=== PATIENT | female | born 1960 | race Caucasian/White ===

== ENCOUNTER → 2017-03-26 19:04 | Outpatient (CLI) | payer BC ==
[2014-05-05 11:10] VITALS: BMI 49.3
[~2017-03-26 19:04] MED LIST: AZOR 5-20 MG TA1 TAB PO; DEMEROL50 MG PO; GLIMEPIRIDE4 MG PO; GLUCOPHAGE1000 MG PO; LIPITOR10 MG PO; NORCO 7.5/325 T1 TA1 PO; PROZAC20 MG PO; TOPROL XL50 MG PO
== END | disposition home or self-care (01) ==
LOC: D.SLEEP 19:04
DX: G47.33 Obstructive sleep apnea (adult) (pediatric) (principal)

== ENCOUNTER → 2017-11-11 19:40 | Outpatient (CLI) | payer BC ==
[2014-05-05 11:10] VITALS: BMI 49.3
== END | disposition home or self-care (01) ==
LOC: D.MAMMO 11-04 10:45
DX: Z12.31 Encounter for screening mammogram for malignant neoplasm of breast (principal)

== ENCOUNTER → 2018-02-27 06:40 | Outpatient (CLI) | payer BC ==
[2014-05-05 11:10] VITALS: BMI 49.3
[~2018-02-27 06:40] MED LIST changes: +DUEXIS 800-26.1 EACH; +LIPITOR10 MG; +METOPROLOL TART50 MG PO; +PROZAC40 MG PO; +ULTRAM50 MG PO; +XIGDUO XR 5 MG1 EAC1; +ZANAFLEX4 MG PO
== END | disposition home or self-care (01) ==
LOC: D.CT 06:40
DX: R10.9 Unspecified abdominal pain (principal)

== ENCOUNTER 2018-04-16 21:03 | Observation (INO) | payer BC ==
[~2018-04-16] VITALS: Ht 160 cm; Wt 118.6 kg
--- NOTE | ~2018-04-16 | ST ---
PATIENT:DIVYA AN MEDICAL RECORD: [id number] SEX: F LOCATION:[address] ORDER #: ADMISSION DATE: 04/16/18 AGE OF PATIENT: 58 REFERRING PHYSICIAN: INTERPRETING PHYSICIAN: ANNE MARIE PRESSLEY MD DATE OF SERVICE: 04/17/2018 NUCLEAR STRESS TEST INDICATION: Chest pain of unknown etiology. She was exercised on standard Lexiscan protocol with 27.8 mCi injected at peak stress 9.3 mCi injected for rest images previously. FINDINGS: Gated SPECT reveals a preserved ejection fraction greater than 60% with good wall motioning and thickening and brightening throughout all segments. SPECT imaging Cardiolite was used as a myocardial fusion agent. There is reversible ischemia anteroapically. This includes basal, mid, apical, anterior segments as well as the apex itself. The degree of reversibility is moderate. The amount of myocardium involved is moderate. OVERALL IMPRESSION: 1. This is an abnormal nuclear stress test. Reversible ischemia anteroapically. 2. Gated SPECT reveals a preserved ejection fraction greater than 60%. In this patient with ongoing symptomatology, the current scan suggests the presence of hemodynamically significant coronary artery disease. We will proceed with coronary angiography with followup study. TRANSINT:[id number] Voice Confirmation ID: [id number] DOCUMENT ID: [id number] ANNE MARIE PRESSLEY MD at 1950 CC: [id number] DICTATION DATE: 04/18/18 1000 TALENT SOURCER: 04/18/18 1049 DIS IN 04/17/18 [address] [place] [address]
[~2018-04-16 21:03] MED LIST changes: -DUEXIS 800-26.1 EACH; -LIPITOR10 MG; -METOPROLOL TART50 MG PO; -PROZAC40 MG PO; -ULTRAM50 MG PO; -XIGDUO XR 5 MG1 EAC1; -ZANAFLEX4 MG PO
[2018-04-16] MEDS ORDERED: XIGDUO XR 5 MG1 EAC1 (21:10)
[2018-04-16] MEDS ORDERED: PROZAC40 MG PO (21:10)
[2018-04-16] MEDS ORDERED: LIPITOR10 MG (21:10)
[2018-04-16] MEDS ORDERED: ZANAFLEX4 MG PO (21:11)
[2018-04-16] MEDS ORDERED: ULTRAM50 MG PO (21:11)
[2018-04-16] MEDS ORDERED: METOPROLOL TART50 MG PO (21:12)
[2018-04-16] MEDS ORDERED: AZOR 5-20 MG TA1 TAB PO (21:12)
[2018-04-16] MEDS ORDERED: DUEXIS 800-26.1 EACH (21:12)
[2018-04-16 21:30] VITALS: BP 135/63
[2018-04-16 21:50] LABS: BASOPHILS 0.5 % (0-2); EOSINOPHILS 3.6 % (0-7); HEMATOCRIT 39.1 % (36.0-48.0); HEMOGLOBIN 12.5 g/dL (12-16); IMMATURE GRANULOCYTES 0.3 % (0-5); LYMPHOCYTES 33.1 % (15-50); MCH 26.6 pg (26.0-34.0); MCV 83.2 fL (80.0-100.0); MEAN PLATELET VOLUME 10.4 fL (7.4-10.4); NEUTROPHILS 56.5 % (40-80); PLATELET COUNT 326 10x3/uL (130-400); RDW 15.1 % (11.5-14.5); WBC 12.7 10x3/uL (4.8-10.8)
[2018-04-16 22:02] VITALS: BP 107/55
[2018-04-16 22:19] LABS: ALBUMIN 3.5 g/dL (3.4-5.0); ALKALINE PHOSPHATASE 91 U/L (46-116); ALT (SGPT) 22 U/L (10-68); BILIRUBIN - TOTAL 0.18 mg/dL (0.2-1.3); CALC OSMOLALITY 281 mosm/kg (275-300); CALCIUM 8.7 mg/dL (8.5-10.1); CARBON DIOXIDE 27.8 mmol/L (21.0-32.0); CHLORIDE - SERUM 102 mmol/L (98-107); CREATININE - SERUM 0.8 mg/dL (0.6-1.3); POTASSIUM - SERUM 3.5 mmol/L (3.5-5.1); PROTEIN - SERUM 7.5 g/dL (6.4-8.2); SODIUM 138 mmol/L (136-145); UREA NITROGEN 18 mg/dL (7-18); eGFR NON AFRICAN AMERICAN 77 mL/min (90-120)
[2018-04-16 22:30] VITALS: BP 114/58
[2018-04-16 22:32] LABS: GLUCOSE 170 mg/dL (74-106)
[2018-04-16 22:36] LABS: CREATINE KINASE 78 UL (21-215); TROPONIN-I < 0.017 ng/mL (0.000-0.060)
[2018-04-16 23:31] VITALS: BP 144/69
[2018-04-17 04:00] VITALS: BP 127/53
[2018-04-17 04:48] LABS: CREATINE KINASE 68 UL (21-215)
[2018-04-17 04:49] LABS: TROPONIN-I < 0.017 ng/mL (0.000-0.060)
[2018-04-17 07:13] VITALS: Ht 160 cm; Wt 118.6 kg
[2018-04-17 08:13] VITALS: BP 106/54
[2018-04-17 12:46] VITALS: BP 119/51
[2018-04-17 14:06] LABS: CKMB 0.8 U/L (0.0-3.6); CREATINE KINASE 63 UL (21-215); TROPONIN-I < 0.017 ng/mL (0.000-0.060)
== END 2018-04-17 16:37 | disposition home or self-care (01) ==
LOC: D.ER 21:03 → D.EDHOLD 23:10 → D.M2 23:10 → OBSVTIME 23:10 → D.M2 23:45
PROVIDERS: Family Medicine
DX: R07.9 Chest pain, unspecified (principal); I10 Essential (primary) hypertension; E78.5 Hyperlipidemia, unspecified; K21.9 Gastro-esophageal reflux disease without esophagitis; F32.9 Major depressive disorder, single episode, unspecified; Z87.891 Personal history of nicotine dependence

== ENCOUNTER → 2018-04-30 07:00 | Outpatient (CLI) | payer BC ==
[2018-04-17 07:13] VITALS: BMI 49.3
[~2018-04-30 07:00] MED LIST changes: +DUEXIS 800-26.1 EACH; +LIPITOR10 MG; +METOPROLOL TART50 MG PO; +PROZAC40 MG PO; +ULTRAM50 MG PO; +XIGDUO XR 5 MG1 EAC1; +ZANAFLEX4 MG PO
== END | disposition home or self-care (01) ==
LOC: D.US 07:00
DX: R10.9 Unspecified abdominal pain (principal)

== ENCOUNTER 2018-05-14 08:40 | Day surgery (SDC) | payer BC ==
[~2018-05-14] VITALS: Ht 160 cm; Wt 122.3 kg
--- NOTE | ~2018-05-14 | OP ---
PATIENT NAME: DIVYA AN MEDICAL RECORD: [id number] :56 LOCATION:D.OPS ADMISSION DATE: SURGEON: CHELY ALANIS MD DATE OF OPERATION: 05/14/2018 PROCEDURE: EGD with biopsy. REFERRING PHYSICIAN: Daniela Conte DO INDICATIONS: Ms. An is a pleasant 58-year-old woman with a history of heartburn and dysphagia. She has been on Pepcid-AC. She presents for outpatient EGD. PREMEDICATIONS: Total IV anesthesia (propofol 200 mg, BMI of 48.5). INSTRUMENT: Olympus video gastroscope. PROCEDURE AND FINDINGS: After receiving informed consent, Ms. An's posterior pharynx was anesthetized with Cetacaine spray, placed in left lateral decubitus position, sedated as per anesthesia. After achieving adequate level of sedation, gastroscope was introduced per orally and advanced to duodenum without difficulty. The esophageal mucosa was notable for moderate ulcerative changes in the distal third of the esophagus with mild oozing of blood. A small hiatal hernia was noted. Gastric mucosa was notable for patchy erythema in the distal body of the stomach and antrum, and antral biopsies were obtained to rule out Helicobacter pylori. No lesions were seen along the incisura, in the cardia or fundus. Pylorus was patent and competent. Duodenal bulbar mucosa was notable for patchy erythema at the apex and then there was scattered erythema in the second portion of the duodenum and biopsies were taken from the second portion of the duodenum. Gastroscope was then withdrawn. Ms. An tolerated the procedure well, no immediate complications. ASSESSMENT: 1. Moderate ulcerative esophagitis secondary to GE reflux disease. 2. Small hiatal hernia. 3. Mild gastritis. 4. Duodenitis. RECOMMENDATIONS: 1. Follow up histopathology. 2. Avoid nonsteroidal anti-inflammatory drugs. 3. Dexilant 60 mg p.o. daily. 4. Follow up EGD in 2 months to document healing of esophageal ulcers (we will schedule for same day as her colonoscopy in June 2018). TRANSINT:[id number] Voice Confirmation ID: [id number] DOCUMENT ID: [id number] OPERATIVE REPORT [id number] DIVYA AN CHELY ALANIS MD CC: DANIELA CONTE DO [id number] DICTATION DATE: 05/14/18 1439 PARTICLEBOARD FACTORY WORKER: 05/14/18 1449 [facility] [address] [place] [address]
[2018-05-14 08:57] LABS: HEMATOCRIT 41.6 % (36.0-48.0); HEMOGLOBIN 13.2 g/dL (12-16); MCHC 31.7 g/dL (31.0-37.0); MCV 81.9 fL (80.0-100.0); PLATELET COUNT 350 10x3/uL (130-400); RBC 5.08 10x6/uL (4.00-5.40); RDW 15.8 % (11.5-14.5); WBC 12.1 10x3/uL (4.8-10.8)
[2018-05-14 09:13] LABS: CALC OSMOLALITY 279 mosm/kg (275-300); CALCIUM 8.8 mg/dL (8.5-10.1); CARBON DIOXIDE 25.2 mmol/L (21.0-32.0); CHLORIDE - SERUM 103 mmol/L (98-107); CREATININE - SERUM 0.8 mg/dL (0.6-1.3); GLUCOSE 173 mg/dL (74-106); POTASSIUM - SERUM 4.2 mmol/L (3.5-5.1); SODIUM 137 mmol/L (136-145); UREA NITROGEN 18 mg/dL (7-18); eGFR NON AFRICAN AMERICAN 77 mL/min (90-120)
[2018-05-14 09:19] LABS: BASOPHILS 1 % (0-2); EOSINOPHILS 1 % (0-7); LYMPHOCYTES 13 % (15-50); MONOCYTES 1 % (2-11); NEUTROPHILS 79 % (40-80)
[2018-05-14 09:20] LABS: PLATELET ESTIMATE NORMAL; PLATELET MORPHOLOGY PLT CLUMPS PRESENT
[2018-05-14 09:21] LABS: ANISOCYTOSIS 1+; SPHEROCYTES 1+
[2018-05-14 13:48] VITALS: BP 154/87; Ht 160 cm; Wt 122.3 kg
== END 2018-05-14 16:30 | disposition home or self-care (01) ==
LOC: D.OPS 08:40
PROVIDERS: Anesthesiology
DX: K21.0 Gastro-esophageal reflux disease with esophagitis (principal); K29.80 Duodenitis without bleeding; K44.9 Diaphragmatic hernia without obstruction or gangrene; R12 Heartburn

== ENCOUNTER → 2018-05-27 18:14 | Outpatient (CLI) | payer BC ==
[2018-05-14 13:48] VITALS: BMI 47.7
[2018-05-27 18:51] LABS: CHOL - HDL RATIO 2.2 ratio (2.3-4.1); LDL-HDL RATIO 0.8 ratio (1.5-3.5)
== END | disposition home or self-care (01) ==
LOC: D.LABREF 18:14
PROVIDERS: Internal Medicine Cardiovascular Disease
DX: E78.5 Hyperlipidemia, unspecified (principal)

== ENCOUNTER → 2018-07-03 10:15 | Outpatient (CLI) | payer BC ==
[2018-05-14 13:48] VITALS: BMI 47.7
== END | disposition home or self-care (01) ==
LOC: D.US 10:15
DX: D49.2 Neoplasm of unspecified behavior of bone, soft tissue, and skin (principal)

== ENCOUNTER 2018-07-16 17:47 | Day surgery (SDC) | payer BC ==
[~2018-07-16] VITALS: Ht 160 cm; Wt 110.9 kg
--- NOTE | ~2018-07-16 | OP ---
PATIENT NAME: DIVYA SALCEDO MEDICAL RECORD: [id number] :56 [facility] ADMISSION DATE: SURGEON: CHELY ALANIS MD DATE OF OPERATION: 07/16/2018 PROCEDURES: EGD and colonoscopy with biopsy, polypectomy, and thermal ablation. INDICATIONS: Ms. Salcedo is a delightful 58-year-old woman with history of GE reflux disease, dysphagia, hematochezia, and change in bowel habits. Her last colonoscopy was over [address] Salas. She had an EGD on 05/14/2018 that showed moderate ulcerative esophagitis, small hiatal hernia, mild gastritis, and duodenitis. Antral biopsy showed H. pylori positive and she was treated. She has been taking Dexilant 60 mg daily and her dysphagia has resolved. She had a CT scan of abdomen and pelvis with contrast on 02/27/2018 that showed no acute inflammatory or infectious process seen in the abdomen, diverticulosis throughout the sigmoid colon without findings of acute diverticulitis, aortic and pelvic atherosclerosis. She presents for outpatient follow up EGD and colonoscopy. PROCEDURE AND FINDINGS: After receiving informed consent, Ms. Salcedo's posterior pharynx was anesthetized with Cetacaine spray. She was placed in left lateral decubitus position. Bite-block was placed and she was sedated as per anesthesia. After achieving adequate level of sedation, gastroscope was introduced per orally and advanced to the duodenum without difficulty. The esophageal mucosa was without erythema, ulcers, strictures, or masses; and appeared normal down the GE junction. The esophageal ulcers had healed. Small sliding-type hiatal hernia was present. Gastric mucosa was notable for mild diffuse erythema. No ulcers were noted. Pylorus was patent and competent. Duodenal mucosa was without erythema or ulcers, appeared normal through the second portion. Gastroscope was then withdrawn. She was prepared for colonoscopy. Digital rectal exam was performed that showed few external hemorrhoidal tags, fissure or fistulas, normal sphincter tone, and no palpable rectal masses. Colonoscope was introduced per rectally and advanced to the cecum without difficulty. The cecum, IC valve, and appendiceal orifice were identified. Within the cecum, was a 0.3-cm sessile polyp, removed with hot biopsy forcep technique. There was minimal patchy erythema in ascending and sigmoid colon and random biopsies were taken from ascending and sigmoid colon for histology. There was a small 0.3-cm sessile polyp at the splenic flexure, removed with hot biopsy forceps technique. Few diverticula were seen scattered in the sigmoid colon. In the distal rectum, just proximal to the anal verge, was a small rectal polyp measuring 0.25 cm in size that was ablated for polyp destruction with hot biopsy forceps technique. Mild internal hemorrhoids were noted with internal papilla present. A good prep was present. Liquid was collected from the colon for studies (xTAG). Ms. Salcedo tolerated the procedure well. No immediate complications. ASSESSMENT: 1. Healed ulcerative esophagitis. 2. Small hiatal hernia. 3. Mild gastritis. 4. History of H. pylori. 5. Nonspecific erythema involving ascending and sigmoid colon, status post biopsy. OPERATIVE REPORT [id number] DIVYA SALCEDO 6. Mild sigmoid diverticulosis coli. 7. Small cecal and splenic flexure polyps, status post polypectomy. 8. Small distal rectal polyp, status post thermal ablation. 9. Mild internal hemorrhoids with hemorrhoidal tag, source of rectal bleeding. RECOMMENDATIONS: 1. Follow up histopathology. 2. Avoid aspirin, nonsteroidal anti-inflammatory drugs, and GARCÍA-2 inhibitors 14 days postpolypectomy. 3. High-fiber diet. 4. Continue Dexilant 60 mg p.o. daily. Recommend after 3 months to discontinue Dexilant and start H2 emmanuel b.i.d. (i.e., Zantac or Pepcid). 5. Surveillance colonoscopy in 3 years. TRANSINT:[id number] Voice Confirmation ID: [id number] DOCUMENT ID: [id number] CHELY ALANIS MD at 2003 CC: DANIELA CONTE DO [id number] DICTATION DATE: 07/16/18 1511 ORDER DISPATCHER: 07/16/18 1711 [facility] 07/16/18 [address] [place] [address]
[2018-07-16 13:38] VITALS: BP 141/74; Ht 160 cm; Wt 110.9 kg
[2018-07-16 13:44] LABS: BASOPHILS 0.5 % (0-2); EOSINOPHILS 1.5 % (0-7); HEMATOCRIT 43.9 % (36.0-48.0); HEMOGLOBIN 14.1 g/dL (12-16); IMMATURE GRANULOCYTES 0.2 % (0-5); LYMPHOCYTES 27.4 % (15-50); MCH 26.3 pg (26.0-34.0); MCHC 32.1 g/dL (31.0-37.0); MCV 81.8 fL (80.0-100.0); MEAN PLATELET VOLUME 10.5 fL (7.4-10.4); MONOCYTES 7.9 % (2-11); NEUTROPHILS 62.5 % (40-80); PLATELET COUNT 377 10x3/uL (130-400); RBC 5.37 10x6/uL (4.00-5.40); RDW 18.2 % (11.5-14.5); WBC 10.8 10x3/uL (4.8-10.8)
[2018-07-16 14:07] LABS: ALBUMIN 3.9 g/dL (3.4-5.0); ALKALINE PHOSPHATASE 72 U/L (46-116); ALT (SGPT) 21 U/L (10-68); BILIRUBIN - TOTAL 0.41 mg/dL (0.2-1.3); CALC OSMOLALITY 283 mosm/kg (275-300); CALCIUM 9.3 mg/dL (8.5-10.1); CARBON DIOXIDE 29.1 mmol/L (21.0-32.0); CHLORIDE - SERUM 102 mmol/L (98-107); CREATININE - SERUM 0.7 mg/dL (0.6-1.3); POTASSIUM - SERUM 4.1 mmol/L (3.5-5.1); SODIUM 142 mmol/L (136-145); UREA NITROGEN 12 mg/dL (7-18); eGFR NON AFRICAN AMERICAN 90 mL/min (90-120)
[2018-07-16 14:08] LABS: GLUCOSE 124 mg/dL (74-106)
== END 2018-07-16 17:48 | disposition home or self-care (01) ==
LOC: D.OPS 17:47
PROVIDERS: Internal Medicine Gastroenterology
DX: K21.9 Gastro-esophageal reflux disease without esophagitis (principal); K44.9 Diaphragmatic hernia without obstruction or gangrene; K29.70 Gastritis, unspecified, without bleeding; D12.0 Benign neoplasm of cecum; D12.3 Benign neoplasm of transverse colon; K62.1 Rectal polyp; K57.30 Diverticulosis of large intestine without perforation or abscess without bleeding; K64.8 Other hemorrhoids; K64.4 Residual hemorrhoidal skin tags; K52.9 Noninfective gastroenteritis and colitis, unspecified; Z01.812 Encounter for preprocedural laboratory examination

== ENCOUNTER → 2020-02-14 11:04 | Outpatient (CLI) | payer OTHER ==
[2018-07-16 13:38] VITALS: BMI 43.3
== END | disposition home or self-care (01) ==
LOC: D.CT 11:04
PROVIDERS: ATTEND Internal Medicine Cardiovascular Disease
DX: I70.213 Atherosclerosis of native arteries of extremities with intermittent claudication, bilateral legs (principal)

== ENCOUNTER 2021-01-01 07:04 | Day surgery (SDC) | payer OTHER ==
[~2021-01-01] VITALS: Ht 160 cm; Wt 102.7 kg
--- NOTE | ~2021-01-01 | HEMODYNAMI ---
PATIENT:DIVYA AN MEDICAL RECORD: [id number] : 56 LOCATION:[facility] ADMISSION DATE: 01/01/21 Generatedon:110:35 Patient name: DIVYA AN Patient #: [id number] SSN: [id number] : 1960 Date of study: 01/01/2021 Page: Of Hemodynamic Procedure Report Patient Data Patient Demographics Procedure consent was obtained First Name: DIVYA Gender: Female Last Name: JUVE : 1960 [facility] Initial: J Age: 60 year(s) Patient #: [id number] Race: SSN: [id number] Additional ID: [id number] Contact details [address]: [address] [place] [address] State: [place] City: [place] Zip code: [address] Past Medical History Allergies Allergen Reaction Date Comments Reported Other allergy 01/01/2021 CODEINE, CLARITHRYMOCIN Admission Admission Data Admission Date: 01/01/2021 Admission Time: 7:04 Arrival Date: 01/01/2021 Arrival Time: 0:00 Admit Source: Other Insurance Payor: Private health insurance [facility] #: [id number] Height (in.): 63 BSA: 2.04 (m2) Height (cm.): 160.02 BMI: 40.11 (kg/m2) Weight (lbs.): 226.46 Weight (kg.): 102.72 Lab Results Lab Result Date: 01/01/2021 Lab Result Time: 0:00 Biochemistry Name Units Result Min Max BUN mg/dl 11 --(-*--)-- 7 18 Creatinine mg/dl 0.7 --(*---)-- 0.6 1.3 eGFR ml/min 90 --(*---)-- 90 120 NONAFRICAN CBC Name Units Result Min Max Hemoglobin g/dl 13.4 -*(----)-- 13.5 17.5 Procedure Procedure Types Cath Procedure Sedation Charges Moderate Sedation 10-24 minutes Peripheral Cath Diagnostic Procedure Level Designer Peripheral Procedures AFRO Diagnostic Procedure Description Procedure Date Procedure Date: 01/01/2021 Procedure Start Time: 10:16 Procedure End Time: 10:32 Procedure Staff Name Function Rosalio Hernandez MD Performing Physician Kristin Littlejohn RT Monitor Harry Aldridge RN Nurse Paige Batista RT Scrub Indication Pulmonary hypertension Procedure Data Cath Procedure Fluoroscopy Diagnostic fluoroscopy Total fluoroscopy Time: 3.2 time: 3.2 min min Diagnostic fluoroscopy Total fluoroscopy dose: 659 dose: 659 mGy mGy Contrast Material Contrast Material Type Amount (ml) Isovue 300 110 Entry Location Entry Primary Successful Side Size Upsize Upsize Entry Closure Succes sful Closure Location (Fr) 1 (Fr) 2 (Fr) Remarks Device Remarks Femoral Right 5 Fr Exoseal artery Estimated blood loss: 5 ml Diagnostic catheters Device Type Used For End Catheter Placement DIAGNOSTIC Pigtail 5Fr Multi-vessel catheter ([id number]) Angiography Procedure Complications No complications Procedure Medications Medication Administration Route Dosage 0.9% NaCl I.V. 100 ml/hr Oxygen etCO2 Nasal cannula 2 l/min Heparin Flush Bag added to field 2 bags (1000units/500ml NS) Lidocaine 2% added to field 20 Versed I.V. 1 mg Fentanyl I.V. 50 mcg Hemodynamics Rest BSA: 2.04 (m2) HGB: 13.4 (g/dl) O2 Consumption: Estimated: 182.92 (ml/min) O2 Co nsumption indexed: Estimated:89.67 (ml/min/m) Heart Rate: 59 (bpm) Snapshots Pre Cath Intra NCS Post Cath Vital Signs Time Heart Resp SPO2 etCO2 NIBP (mmHg) Rhythm Pain Sedation Rate (ipm) (%) (mmHg) Status Level (bpm) 10:09:30 59 18 98 27.7 130/67(105) NSR 0 (11) 10(A) , No pain 10:13:34 60 11 93 0 117/66(98) NSR 0 (11) 10(A) , No pain 10:17:41 64 17 92 8.9 125/74(107) NSR 0 (11) 9(A) , No pain 10:21:55 65 16 84 40.4 126/68(95) NSR 0 (11) 9(A) , No pain 10:26:05 68 12 88 11.2 121/71(100) NSR 0 (11) 9(A) , No pain 10:30:17 70 11 94 40.4 135/71(103) NSR 0 (11) 9(A) , No pain Medications Time Medication Route Dose Verified Delivered Reason Notes Eff ectiveness by by 10:10:42 0.9% NaCl I.V. 100 Harry Harry Per ml/hr Oly Aldridge physician RN RN 10:10:51 Oxygen etCO2 2 Harry Harry for low 02 Nasal l/min Lorigan Lorigan sats cannula RN RN 10:11:01 Heparin Flush added 2 Harry Harry used for Bag to bags Lorigan Lorigan procedure (1000units/500ml field RN RN NS) 10:11:10 Lidocaine 2% added 20ml Harry Harry for local to vial Lorigan Lorigan anesthetic field RN RN 10:11:18 Versed I.V. 1 mg Harry Harry for Lorigan Lorigan sedation RN RN 10:11:26 Fentanyl I.V. 50 Harry Harry for mcg Lorigan Lorigan sedation RN reporting specialist Log Time Note 9:32:25 Informed consent obtained and on chart 9:32:42 Diagnostic Cath Status : Elective 9:33:13 Indication : Pulmonary hypertension 9:33:16 Arrival Date: 01/01/2021 12:00:00 AM 9:33:17 Admit Source: Other 9:33:19 Insurance Payor : Private health insurance 9:33:33 Patient Height : 63 inches 9:33:37 Patient Weight : 226.46 lbs 9:33:55 ACC Patient presents with Stable Angina CCS Anginal Class 2--Slight limitation of ordinary activity. 9:33:58 Procedure Status Elective Heart Cath (OP). 9:33:59 Time tracking: Regular hours (M-F 7:00 - 5:00) 9:34:03 Plan of Care:Hemodynamics will remain stable., Cardiac rhythm will remain stable., Comfort level will be maintained., Respiratory function will remain adequate., Patient/ family verbilizes understanding of procedure., Procedure tolerated without complication., Recovers from procedure without complications.. 9:34:10 H&P Date Dictated: 12/20/2020 Within 30 days and on chart.. 9:34:12 Family in waiting room. 9:34:14 Patient NPO since Midnight. 9:34:32 Patient allergic to Other allergyCODEINE, CLARITHRYMOCIN 9:34:38 Alarms reviewed by R. N. 9:34:38 Sharps counted by scrub and verified by R.N. 9:44:15 Harry Aldridge RN sent for patient. Start room use. 9:51:46 Lab Result : eGFR NONAFRICAN 90 ml/min 9::46 Lab Result : Creatinine 0.7 mg/dl 9::46 Lab Result : BUN 11 mg/dl 9::46 Lab Result : Hemoglobin 13.4 g/dl 9:52:05 Patient received from Pre/Post Procedure Room to CCL 2 Alert and oriented. Tansferred to table in Supine position. 9:52:18 Warm blankets applied, and tyler hugger turned on for patient comfort. 9:52:19 Correct patient and procedure confirmed by team. 9:52:19 ECG and BP/O2 sat monitors applied to patient. 10:01:37 Procedure type changed to Cath procedure, Sedation Charges, Moderate Sedation 10-24 minutes, Peripheral Cath Diagnostic Procedure, Level Designer Peripheral Procedures, AFRO Diagnostic 10:08:28 Vital chart was started 10:08:29 Baseline sample Acquired. 10:08:32 Rhythm: sinus rhythm 10:08:34 Pre-procedure instructions explained to patient. 10:08:35 Pre-op teaching completed and patient verbalized understanding. 10:08:38 Is the patient allergic to Iodine/contrast media? No. 10:08:39 Was the patient premedicated? Yes 10:08:39 Is patient on blood thinner?Yes 10:09:24 Patient states last dose of Xarelto on 12/28/2020 10:09:27 Patient diabetic? Yes. 10:09:29 If diabetic: On Metformin? Yes 10:09:32 If on Metformin: Last Dose? 12/28/2020 10:09:42 Previous problem with sedation/anesthesia? Yes difficult to awaken 10:09:45 Snore? Yes 10:09:48 Sleep apnea? Yes 10:09:49 Deviated septum? No 10:09:49 Opens mouth fully? Yes 10:09:50 Sticks out tongue? Yes 10:09:57 Airway obstruction? Yes copd 10:10:14 Dentures? Yes in tight 10:10:17 Pre procedure: right dorsailis pedis pulse 1+ Palpable, but thready & weak; easily obliterated 10:10:25 Pre procedure: left dorsailis pedis pulse 1+ Palpable, but thready & weak; easily obliterated 10:10:29 IV patent on arrival in left forearm with 0.9% NaCl at KVO. 10:10:31 Lab results completed and on chart. 10:10:37 Bilateral groins area was prepped with chlora-prep and draped in sterile fashion 10:10:39 Physician arrived 10:10:39 --------ALL STOP TIME OUT------ 10:10:40 Final Timeout: patient, procedure, and site verified with staff and physician. All members of the team are in agreement. 10:10:42 0.9% NaCl 100 ml/hr I.V. was administered by Harry Aldridge RN; Per physician; Verbal order read back and verified. 10:10:42 Bilateral groins site verified by team. 10:10:46 Fire Safety Assessment: A--An alcohol-based skin anteseptic being used preoperatively., C--Open oxygen or nitrous oxide is being used., D--An ESU, laser, or fiber-optic light is being used. 10:10:49 Physical assessment completed. ASA score P 2 - A patient with mild systemic disease as per Rosalio Hernandez MD. 10:10:51 Oxygen 2 l/min etCO2 Nasal cannula was administered by Harry Aldridge RN; for low 02 sats; Verbal order read back and verified. 10:10:53 Sedation plan: IV Moderate Sedation Medication:Versed, Fentanyl 10:10:56 1) 90+ Normal kidney functon but urine findings or structural abnormalities or genetic trait point to kidney disease. 10:10:58 Maximum allowable contrast dose (3.7 X eGFR X 0.75)250 ml. 10:11:01 Heparin Flush Bag (1000units/500ml NS) 2 bags added to field was administered by Harry Aldridge RN; used for procedure; Verbal order read back and verified. 10:11:04 Use device set CATH PACK 10:11:06 ACIST Syringe (80139) opened to sterile field. 10:11:07 ACIST Hand Control (45405) opened to sterile field. 10:11:07 ACIST Manifold (75766) opened to sterile field. 10:11:08 Medline Cath Pack ([id number]) opened to sterile field. 10:11:08 Bag Decanter (2002S) opened to sterile field. 10:11:08 EMERALD Guide Wire (635-532) opened to sterile field. 10:11:10 Lidocaine 2% 20ml vial added to field was administered by Harry Aldridge RN; for local anesthetic; Verbal order read back and verified. 10:11:18 Versed 1 mg I.V. was administered by Harry Aldridge RN; for sedation; Verbal order read back and verified. 10:11:24 SHEATH 5FR Saint Joseph ([id number]) opened to sterile field. 10:11:26 Fentanyl 50 mcg I.V. was administered by Harry Aldridge RN; for sedation; Verbal order read back and verified. 10:16:18 Procedure started. 10:16:18 Full Disclosure recording started 10:16:23 Local anesthetic to right femoral artery with Lidocaine 2% by Rosalio Hernandez MD.INITIAL ACCESS ONLY 10:18:43 A 5 Fr sheath was inserted into the Right Femoral artery 10:18:49 A DIAGNOSTIC Pigtail 5Fr catheter ([id number]) was advanced over the wire and used for Multi-vessel Angiography. 10:27:55 Catheter removed. 10:28:18 EXOSEAL 5Fr (EX500) opened to sterile field. 10:28:46 Sheath removed intact; hemostasis achieved with Exoseal to the Right Femoral artery. 10:28:49 Procedure ended.(Physican Out) 10:29:08 Fluoroscopy time 03.20 minutes. 10:29:13 Fluoroscopy dose: 659 mGy 10:29:13 Flurop Dose total: 659 10:29:18 Dose Area Product 17602 mGy/cm. 10:29:22 Contrast amount:Isovue 300 110ml. 10:29:27 Maximum allowable dose exceeded? No. 10:29:28 Sharps counted by scrub and verified by R.N. 10:29:32 Post-op/insertion site Right Femoral artery dressed using a 4 x 4 and Tegaderm. 10:29:33 Post Procedure Pulses reassessed and unchanged 10:29:35 Post procedure rhythm: unchanged. 10:29:37 Estimated blood loss: 5 ml 10:29:39 Post procedure instruction explained to patient.Patient verbalizes understanding. 10:29:39 Patient needs reinforcement of post procedure teaching. 10:29:40 Procedure and supply charges have been captured, reviewed, submitted and are correct. 10:32:02 Procedure Complication : No complications 10:32:05 Vital chart was stopped 10:32:09 AFRO Findings: PVD: MD will discuss options w/ pt 10:32:10 Operative report dictated upon procedure completion. 10:32:11 See physician's report for complete and final results. 10:32:13 Report given to Pre/Post Procedure Room. 10:32:15 Patient transfered to Pre/Post Procedure Room with Stretcher. 10:32:20 Procedure ended. 10:32:20 Full Disclosure recording stopped 10:32:25 End room use (Document Last) 10:34:19 End room use (Document Last) 10:34:55 End room use (Document Last) Device Usage Item Name Manufacture Quantity Catalog Hospital Part Current Minimal L ot# / Number Charge Number Stock Stock Serial# Code ACIST Acist 1 18756 [id number] 991937 [id number] 20 Syringe Medical (92328) Systems Inc ACIST Hand Acist 1 61201 123629 794210 581875 5 Control Medical (04239) Systems Inc ACIST Acist 1 64088 941509 605433 278461 5 Manifold Medical (52547) Systems Inc Medline Medline 1 [id number] 609274 99133 115658 5 Cath Pack ([id number]) Bag Microtek 1 782990 50148 871033 5 Decanter Medical Inc. () EMERALD Cardinal 1 502-455 685705 027133 167765 5 Guide Wire Health (502-455) SHEATH 5FR Terumo 1 [id number] 929680 650988 960327 5 [facility] Joseph (GAQ635) DIAGNOSTIC Cardinal 1 [id number] 860988 342876 790424 5 Pigtail 5Fr Health catheter ([id number]) EXOSEAL 5Fr Cardinal 1 EX500 820135 217237 077724 10 (EX500) Health Signature Audit [place] Stage Time Signature Unsigned Intra-Procedure 01/01/2021 Kristin Littlejohn 10:34:19 AM RT(R) Intra-Procedure 01/01/2021 Harry 10:34:55 AM Lorigan RN Intra-Procedure 01/01/2021 Rosalio Hernandez MD 10:35:20 AM Signatures Performing Physician : Signature : Rosalio Hernandez MD Date : Time : Monitor : Kristin Littlejohn RT Signature : Date : Time : Nurse : Harry Lorigan Signature : RN Date : Time : [facility] [address] [place] [address]
[2021-01-01] MEDS ORDERED: NORVASC5 MG PO ×2 (08:13→08:16)
[2021-01-01] MEDS ORDERED: GLUCOPHAGE1000 MG PO (08:14)
[2021-01-01] MEDS ORDERED: LIPITOR10 MG PO (08:14)
[2021-01-01] MEDS ORDERED: VITAMIN D21250 MC1 PO (08:14)
[2021-01-01] MEDS ORDERED: TOPROL XL50 MG PO (08:15)
[2021-01-01] MEDS ORDERED: BENICAR20 MG PO (08:16)
[2021-01-01] MEDS ORDERED: PROTONIX40 MG PO (08:17)
[2021-01-01] MEDS ORDERED: XARELTO10 MG PO (08:18)
[2021-01-01] MEDS ORDERED: XIGDUO XR 5 MG1 EAC1 (08:19)
[2021-01-01] MEDS ORDERED: LYRICA75 MG PO (08:20)
[2021-01-01 08:23] VITALS: BP 136/58; Ht 160 cm; Wt 102.7 kg
[2021-01-01 08:41] LABS: CALC OSMOLALITY 277 mosm/kg (275-300); CALCIUM 8.9 mg/dL (8.5-10.1); CARBON DIOXIDE 27.3 mmol/L (21.0-32.0); CHLORIDE - SERUM 105 mmol/L (98-107); CREATININE - SERUM 0.7 mg/dL (0.6-1.3); GLUCOSE 149 mg/dL (74-106); POTASSIUM - SERUM 4.2 mmol/L (3.5-5.1); SODIUM 138 mmol/L (136-145); UREA NITROGEN 11 mg/dL (7-18); eGFR NON AFRICAN AMERICAN 90 mL/min (90-120)
[2021-01-01 08:55] LABS: BASOPHILS 1.2 % (0-2); EOSINOPHILS 3.8 % (0-7); HEMATOCRIT 41.4 % (36.0-48.0); HEMOGLOBIN 13.4 g/dL (12-16); LYMPHOCYTES 28.8 % (15-50); MCH 27.9 pg (26.0-34.0); MCHC 32.3 g/dL (31.0-37.0); MCV 86.4 fL (80.0-100.0); MEAN PLATELET VOLUME 8.4 fL (7.4-10.4); MONOCYTES 8.2 % (2-11); PLATELET COUNT 306 10x3/uL (130-400); RBC 4.79 10x6/uL (4.00-5.40); RDW 14.5 % (11.5-14.5); WBC 8.7 10x3/uL (4.8-10.8)
--- NOTE | 2021-01-01 10:47 | NUR ---
PT REC'D TO CATH RECOVERY ROOM 3 VIA STRETCHER. MONITORS ESTAB. NO FAMILY PRESENT. SEE BUFFET MANAGER FLOWSHEETS. ALARMS ON AND C/L IN REACH.
--- NOTE | 2021-01-01 11:00 | NUR ---
SISTER AT BS. PT RESTING QUIETLY. R GROIN EXOSEAL SITE C/D/I, NO S/S BLEEDING OR HEMATOMA. R LEG/FOOT WARM WITH PULSES DOPPLERED EASILY. VSS. PT DENIES PAIN OR NEEDS. ALARMS ON AND C/L IN REACH.
--- NOTE | 2021-01-01 11:30 | NUR ---
PT RESTING QUIETLY, R GROIN SITE SOFT, NO S/S BLEEDING OR HEMATOMA. VSS. PT PULSE PALP AND DOPPLERED. ALARMS ON AND C/L IN REACH.
--- NOTE | 2021-01-01 11:45 | NUR ---
R GROIN SITE SOFT, NO S/S BLEEDING OR HEMATOMA. R LEG/FOOT WARM, PULSES DOPPLERED. VSS. PT DENIES PAIN OR NEEDS. ALARMS ON AND C/L IN REACH.
--- NOTE | 2021-01-01 12:10 | NUR ---
DR. FAIRBANKS IN TO SEE PT, UPDATE GIVEN AND QUESTIONS ANSWERED. PLAN FOR RETURN TO IT RISK AND ASSURANCE MANAGER FOR PROCEDURE ON R LEG. OFFICE WILL NOTIFY PATIENT.
--- NOTE | 2021-01-01 12:15 | NUR ---
R GROIN SITE SOFT, C/D/I, NO S/S BLEEDING. HOB ELEVATED. SANDWICH TRAY AND WATER PROVIDED. C/L IN REACH.
--- NOTE | 2021-01-01 12:30 | NUR ---
VSS. PT TOLERATED DIET. R GROIN SITE SOFT, NO S/S BLEEDING OR HEMATOMA. PULSES DOPPLERABLE. SISTER AT BS.
--- NOTE | 2021-01-01 12:48 | NUR ---
PIV D/C'D INTACT, DSG APLLIED. PT ALLOWED UP TO GET DRESSED AND GO TO BR INDEPENDENTLY.
--- NOTE | 2021-01-01 12:56 | NUR ---
ALL DISCHARGE INSTRUCTIONS REVIEWED WITH PT AND SISTER, INCLUDING RESTRICTIONS, MEDS AND PLAN FOR RETURN FOR PROCEDURE ( OFFICE WILL NOTIFY PT) - BOTH VERBALIZE UNDERSTANDING. R GROIN SITE SOFT, NO S/S BLEEDING OR HEMATOMA.
--- NOTE | 2021-01-01 13:03 | NUR ---
PT D/C'D VIA WC TO PRIVATE VEHICLE WITH ALL PAPERWORK AND BELONGINGS.
== END 2021-01-01 13:03 | disposition home or self-care (01) ==
LOC: D.CATH 07:04
PROVIDERS: ATTEND Internal Medicine Cardiovascular Disease
DX: I73.9 Peripheral vascular disease, unspecified (principal); I10 Essential (primary) hypertension; E11.9 Type 2 diabetes mellitus without complications

== ENCOUNTER 2021-01-30 06:12 | Inpatient (IN) | payer OTHER ==
[2021-01-30] VITALS (11 sets, daily range): BP systolic 123–150; BP diastolic 49–131; BMI 40.5; BMI 40.4
[~2021-01-30] VITALS: Ht 160 cm; Wt 103.6 kg
--- NOTE | ~2021-01-30 | HEMODYNAMI ---
PATIENT:DIVYA AN MEDICAL RECORD: [id number] : 56 LOCATION:D.CAT ADMISSION DATE: 01/30/21 Generatedon:19:27 Patient name: DIVYA AN Patient #: [id number] SSN: [id number] : 1960 Date of study: 01/30/2021 Page: Of Hemodynamic Procedure Report Patient Data Patient Demographics Procedure consent was obtained First Name: DIVYA Gender: Female Last Name: JUVE : 1960 [facility] Initial: J Age: 61 year(s) Patient #: [id number] Race: SSN: [id number] Additional ID: [id number] Contact details [address]: [address] [place] [address] State: [place] City: [place] Zip code: [address] Past Medical History Allergies Allergen Reaction Date Comments Reported Other allergy 01/01/2021 CODEINE, CLARITHRYMOCIN Codeine 01/30/2021 Admission Admission Data Admission Date: 01/30/2021 Admission Time: 6:12 Admit Source: Other Procedure Procedure Types Cath Procedure Sedation Charges Moderate Sedation 55-69 minutes PCI Procedure Hemochron ACT Test Procedure Description Procedure Date Procedure Date: 01/30/2021 Procedure Start Time: 8:06 Procedure End Time: 9:21 Procedure Staff Name Function Rosalio Hernandez MD Performing Physician Trenton Centeno RT Monitor Rochelle Nolasco RT Scrub Harry Aldridge RN Nurse Procedure Data Cath Procedure Fluoroscopy Diagnostic fluoroscopy Total fluoroscopy Time: time: 14.4 min 14.4 min Diagnostic fluoroscopy Total fluoroscopy dose: 755 dose: 755 mGy mGy Contrast Material Contrast Material Type Amount (ml) Isovue 370 125 Entry Location Entry Primary Successful Side Size Upsize Upsize Entry Closure Succes sful Closure Location (Fr) 1 (Fr) 2 (Fr) Remarks Device Remarks Femoral Left 5 Fr sutured vein in Femoral Right 6 Fr sutured artery Short in Estimated blood loss: 5 ml Diagnostic catheters Device Type Used For End Catheter Placement DIAGNOSTIC IM 5Fr Abdominal catheter ([id number]) aortogram DIAGNOSTIC Pigtail 5Fr catheter ([id number]) Procedure Complications No complications Procedure Medications Medication Administration Route Dosage 0.9% NaCl I.V. 100 ml/hr Oxygen etCO2 Nasal cannula 2 l/min Heparin Flush Bag added to field 2 bags (1000units/500ml NS) Lidocaine 2% added to field 20 Versed I.V. 1 mg Fentanyl I.V. 50 mcg Versed I.V. 0.5 mg Fentanyl I.V. 25 mcg Heparin Bolus I.V. 7000 units Heparin Drip I.V. drip 1000 units/hr (60698ixgch/250 D5W) Hemodynamics Rest Heart Rate: 64 (bpm) Pressure Samples Time Site Value (mmHg) Purpose Heart Use Rate(bpm) 8:40 AO 123/58(85) Snapshot 65 8:40 AO 68/48(56) Snapshot 63 9:09 AO 107/59(81) Snapshot 61 9:10 AO 144/62(95) Snapshot 67 Snapshots Pre Cath Intra NCS Post Cath Vital Signs Time Heart Resp SPO2 etCO2 NIBP (mmHg) Rhythm Pain Sedation Rate (ipm) (%) (mmHg) Status Level (bpm) 7:49:02 65 43 97 35.3 130/61(103) NSR 0 (11) 10(A) , No pain 7:53:27 64 15 99 36 123/61(92) NSR 0 (11) 10(A) , No pain 7:57:40 68 13 91 0 113/60(84) NSR 0 (11) 10(A) , No pain 8:01:58 63 12 92 0 127/65(107) NSR 0 (11) 10(A) , No pain 8:06:19 63 13 93 21.7 110/63(88) NSR 0 (11) 10(A) , No pain 8:10:27 74 19 92 14.2 125/92(118) NSR 0 (11) 9(A) , No pain 8:14:44 69 24 93 0 133/69(103) NSR 0 (11) 9(A) , No pain 8:19:02 67 12 92 0 109/60(88) NSR 0 (11) 9(A) , No pain 8:23:19 68 13 91 0 110/64(90) NSR 0 (11) 9(A) , No pain 8:27:35 65 13 93 8.2 119/58(92) NSR 0 (11) 9(A) , No pain 8:31:53 69 16 95 27 120/66(91) NSR 0 (11) 9(A) , No pain 8:36:11 65 14 95 9 127/65(101) NSR 0 (11) 9(A) , No pain 8:40:29 61 14 98 24 116/61(87) NSR 0 (11) 9(A) , No pain 8:44:49 67 13 97 18.7 120/59(88) NSR 0 (11) 9(A) , No pain 8:49:05 66 14 98 0 125/60(101) NSR 0 (11) 9(A) , No pain 8:53:23 66 15 98 9.7 114/59(84) NSR 0 (11) 9(A) , No pain 8:57:43 68 16 97 37.5 111/56(82) NSR 0 (11) 9(A) , No pain 9:02:01 64 15 98 30.8 119/62(94) NSR 0 (11) 9(A) , No pain 9:06:21 64 16 98 28.5 114/64(94) NSR 0 (11) 9(A) , No pain 9:10:40 62 16 97 0 112/63(91) NSR 0 (11) 9(A) , No pain 9:14:57 64 15 97 9.7 121/64(80) NSR 0 (11) 9(A) , No pain 9:19:11 65 15 97 0 119/65(86) NSR 0 (11) 9(A) , No pain Medications Time Medication Route Dose Verified Delivered Reason Not es Effectiveness by by 7:49:28 0.9% NaCl I.V. 100 Harry Harry for low 02 sats ml/hr Oly Aldridge RN RN 7:49:36 Oxygen etCO2 2 l/min Harry Harry for low 02 sats Nasal Oly Aldridge cannula RN RN 7:49:46 Heparin Flush added 2 bags Harry Harry used for Bag to Oly Aldridge procedure (1000units/500ml field RN RN NS) 7:49:57 Lidocaine 2% added 20ml Harry Harry for local to vial Oly Aldridge anesthetic field RN RN 8:00:02 Versed I.V. 1 mg Harry Harry for sedation Oly Aldridge RN RN 8:00:11 Fentanyl I.V. 50 mcg Harry Harry for sedation Oly Aldridge RN RN 8:09:52 Versed I.V. 0.5 mg Harry Harry for sedation Oly Aldridge RN RN 8:09:59 Fentanyl I.V. 25 mcg Harry Harry for sedation Oly Aldridge RN RN 8:38:44 Heparin Bolus I.V. 7,000 Harry Harry for units Oly Aldridge anticoagulation RN RN 9:01:47 Heparin Drip I.V. 1,000 Harry Harry for (06477giajz/250 drip units/hr Oly Aldridge anticoagulation D5W) RN rug dyer Log Time Note 7:34:07 Admit Source: Other 7:34:51 Procedure Status PCI. 7:39:21 Harry Aldridge RN sent for patient. Start room use. 7:40:49 Time tracking: Regular hours (M-F 7:00 - 5:00) 7:40:54 Plan of Care:Hemodynamics will remain stable., Cardiac rhythm will remain stable., Comfort level will be maintained., Respiratory function will remain adequate., Patient/ family verbilizes understanding of procedure., Procedure tolerated without complication., Recovers from procedure without complications.. 7:42:32 Patient received from Pre/Post Procedure Room to CCL 1 Alert and oriented. Tansferred to table in Supine position. 7:42:35 Signed procedure consent form obtained from patient. 7:42:36 Warm blankets applied, and tyler hugger turned on for patient comfort. 7:42:36 Correct patient and procedure confirmed by team. 7:42:37 ECG and BP/O2 sat monitors applied to patient. 7:47:40 Vital chart was started 7:47:41 Full Disclosure recording started 7:47:46 Rhythm: sinus rhythm 7:49:28 0.9% NaCl 100 ml/hr I.V. was administered by Harry Aldridge RN; for low 02 sats; Verbal order read back and verified. 7:49:36 Oxygen 2 l/min etCO2 Nasal cannula was administered by Harry Aldridge RN; for low 02 sats; Verbal order read back and verified. 7:49:46 Heparin Flush Bag (1000units/500ml NS) 2 bags added to field was administered by Harry Aldridge RN; used for procedure; Verbal order read back and verified. 7:49:57 Lidocaine 2% 20ml vial added to field was administered by Harry Aldridge RN; for local anesthetic; Verbal order read back and verified. 7:55:12 Baseline sample Acquired. 7:55:20 H&P Date Dictated: 01/30/2021 H&P Addendum completed by physician on day of procedure. (MUST COMPLETE FOR ALL OUTPATIENTS). 7:55:22 Pre-procedure instructions explained to patient. 7:55:24 Pre-op teaching completed and patient verbalized understanding. 7:55:27 Family in waiting room. 7:55:36 Patient NPO since Midnight. 7:55:47 Patient allergic to Codeine 7:56:01 Is the patient allergic to Iodine/contrast media? No. 7:56:06 Is patient on blood thinner?Yes 7:56:20 Patient diabetic? No. 7:56:21 ----Pre-sedation anethsthesia assessment.---- 7:56:24 Previous problem with sedation/anesthesia? No ? 7:56:28 Snore? Yes 7:56:30 Sleep apnea? Yes 7:56:32 Deviated septum? No 7:56:34 Opens mouth fully? Yes 7:56:35 Sticks out tongue? Yes 7:56:38 Airway obstruction? No ? 7:56:45 Dentures? Yes uppers in tight 7:56:53 Pre procedure: right dorsailis pedis pulse 0-Absent 7:56:57 Pre procedure: left dorsailis pedis pulse 1+ Palpable, but thready & weak; easily obliterated 7:57:00 Patient pain scale 0/10 ?. 7:57:06 IV patent on arrival in left antecubital with 0.9% NaCl at [facility]. 7:57:58 Lab results completed and on chart. 7:58:03 Bilateral groins area was prepped with chlora-prep and draped in sterile fashion 7:58:05 Alarms reviewed by R. N. 7:58:05 Sharps counted by scrub and verified by Huyen 7:58:06 Physician arrived 7:58:07 --------ALL STOP TIME OUT------ 7:58:08 Final Timeout: patient, procedure, and site verified with staff and physician. All members of the team are in agreement. 7:58:12 Bilateral groins site verified by team. 7:58:16 Fire Safety Assessment: A--An alcohol-based skin anteseptic being used preoperatively., B--The operative or invasive procedure is being performed above the xiphoid process or in the oropharynx., C--Open oxygen or nitrous oxide is being used. 7:58:24 Fire Safety Assessment: D--An ESU, laser, or fiber-optic light is being used., E--There are other possible contributors. 7:58:29 Physical assessment completed. ASA score P 2 - A patient with mild systemic disease as per Rosalio Hernandez MD. 7:58:48 1) 90+ Normal kidney functon but urine findings or structural abnormalities or genetic trait point to kidney disease. 7:58:53 Maximum allowable contrast dose (3.7 X eGFR X 0.75)250 ml. 7:58:57 Sedation plan: IV Moderate Sedation Medication:Versed, Fentanyl 8:00:02 Versed 1 mg I.V. was administered by Harry Aldridge RN; for sedation; Verbal order read back and verified. 8:00:11 Fentanyl 50 mcg I.V. was administered by Harry Aldridge RN; for sedation; Verbal order read back and verified. 8:00:29 Use device set Femoral Dx 8:00:31 ACIST Syringe (71922) opened to sterile field. 8:00:32 Bag Decanter (2002S) opened to sterile field. 8:00:34 Medline Cath Pack ([id number]) opened to sterile field. 8:00:35 ACIST Hand Control (76987) opened to sterile field. 8:00:36 ACIST Manifold (34429) opened to sterile field. 8:00:37 Tegaderm 4 x 4 (1626W) opened to sterile field. 8:00:40 EMERALD Guide Wire (502-130) opened to sterile field. 8:01:14 SHEATH 6FR Gonzales (KWR694) opened to sterile field. 8:01:16 INFLATOR Merit [place] (GO1683) opened to sterile field. 8:01:48 SHEATH 6FR Destination (RSR01) opened to sterile field. 8:04:54 Procedure started. 8:06:37 Local anesthetic to left femerol artery with Lidocaine 2% by Rosalio Hernandez MD.INITIAL ACCESS ONLY 8:06:47 A 5 Fr sheath was inserted into the Left Femoral vein 8:06:57 Zero performed for pressure channel P1 8:07:03 Zero performed for pressure channel P1 8:09:52 Versed 0.5 mg I.V. was administered by Harry Aldridge RN; for sedation; Verbal order read back and verified. 8:09:59 Fentanyl 25 mcg I.V. was administered by Harry Aldridge RN; for sedation; Verbal order read back and verified. 8:10:46 A 6 Fr Short sheath was inserted into the Right Femoral artery 8:13:26 Procedure type changed to Cath procedure, Sedation Charges, Moderate Sedation 55-69 minutes, PCI procedure, Hemochron ACT Test 8:13:51 NEEDLE Merit 18G 9cm Percutaneous Entry ([id number]) opened to sterile field. 8:20:56 A 5 FrFr IM catheter was inserted over the wire. 8:21:15 A DIAGNOSTIC IM 5Fr catheter (031367N) was advanced over the wire and used for Abdominal aortogram. 8:21:54 GLIDE WIRE ANGLE 260cm (SS2105) opened to sterile field. 8:23:25 SHEATH 5FR Gonzales (VDK155) opened to sterile field. 8:29:12 IM around the horn using the glidewire. 8:30:09 TORQUE DEVICE PLASTIC .038 ( TD01) opened to sterile field. 8:38:22 CXI SUPPORT .035 135 CM STR catheter ([id number]) opened to sterile field. 8:38:44 Heparin Bolus 7,000 units I.V. was administered by Harry Aldridge RN; for anticoagulation; Verbal order read back and verified. 8:39:01 IM removed over the wire and CXI support catheter inserted over the wire. 8:43:02 Wire removed and gradients measured. 8:43:18 Glidewire advanced. 8:43:40 CXI removed and IM advanced. 8:44:34 Wire removed. Angiogram performed. 8:50:53 IM removed and Pigtail advanced. Angiogram 9:01:47 Heparin Drip (83111xpvbv/250 D5W) 1,000 units/hr I.V. drip was administered by Harry Aldridge RN; for anticoagulation; Verbal order read back and verified. 9:04:56 Pigtail exchanged for a IM for more selective angiogram. 9:09:07 ACT drawn and resulted at 305 seconds. (normal therapeutic range 180-240 seconds). 9:11:09 IM removed over the wire. 9:12:18 Procedure ended.(Physican Out) 9:12:33 Fluoroscopy time 14.40 minutes. 9:12:41 Flurop Dose total: 755 9:12:41 Fluoroscopy dose: 755 mGy 9:12:47 Dose Area Product 81786 mGy/cm. 9:14:46 Contrast amount:Isovue 370 125ml. 9:14:49 Maximum allowable dose exceeded? No. 9:14:50 Sharps counted by scrub and verified by R.N. 9:14:53 Insertion/operative site no bleeding no hematoma. 9:14:57 Post-op/insertion site Left Femoral artery dressed using a 4 x 4 and Tegaderm. 9:15:02 Post left femerol artery:stable 9:15:04 Post Procedure Pulses reassessed and unchanged 9:15:07 Post procedure: right dorsailis pedis pulse 1+ Palpable, but thready & weak; easily obliterated. 9:15:10 Post procedure rhythm: unchanged. 9:15:16 Estimated blood loss: 5 ml 9:15:18 Post procedure instruction explained to patient.Patient verbalizes understanding. 9:15:19 Procedure and supply charges have been captured, reviewed, submitted and are correct. 9:16:00 A DIAGNOSTIC Pigtail 5Fr catheter ([id number]) was advanced over the wire and used for . 9:20:13 Procedure Complication : No complications 9:20:16 Vital chart was stopped 9:20:23 AFRO Findings: PVD: will discuss options w/ pt 9:20:33 Operative report dictated upon procedure completion. 9:20:37 See physician's report for complete and final results. 9:20:44 Report given to Pre/Post Procedure Room. 9:20:50 Patient transfered to Pre/Post Procedure Room with Stretcher. 9:21:27 Procedure ended. 9:21:27 Full Disclosure recording stopped 9:22:03 End room use (Document Last) 9:26:32 Procedure and supply charges have been captured, reviewed, submitted and are correct. Device Usage Item Name Manufacture Quantity Catalog Hospital Part Current Minimal Lot# / Number Charge Number Stock Stock Serial# Code ACIST Acist 1 97031 999751 719694 024394 20 Syringe Medical (96719) Systems Inc Bag Decanter Microtek 1 2001S 510976 78832 788101 5 (2001S) Medical Inc. Medline Cath Medline 1 [id number] 419117 73382 630645 5 Pack ([id number]) ACIST Hand Acist 1 90004 905087 385981 812227 5 Control Medical (31780) Systems Inc ACIST Acist 1 30331 794907 545264 820578 5 Manifold Medical (93844) Systems Inc Tegaderm 4 x 3M 1 1626W 147074 468098 285332 5 4 (1626W) EMERALD Cardinal 1 502-455 558596 787123 660480 5 Guide Wire Health (502-455) SHEATH 6FR Terumo 1 PJZ226 079462 621597 850248 40 Gonzales (UYO858) INFLATOR Merit 1 YS4431 088996 720747 427106 15 [facility] Medical BasixCompak (LB2645) SHEATH 6FR Terumo 1 RSR01 702690 14035 937027 5 Destination (RSR01) NEEDLE Merit Merit 1 [id number] 782333 916175 467664 5 18G 9cm Medical Percutaneous Entry (NJ74J59N) DIAGNOSTIC Cardinal 1 232408N 731004 117362 597963 5 IM 5Fr Health catheter (497991S) GLIDE WIRE Terumo 1 KJ2438 139054 083292 912618 5 ANGLE 260cm (KU1541) SHEATH 5FR Terumo 1 BTV776 739324 800281 238344 5 Gonzales (PXO880) TORQUE [place] 1 TD01 708027 076850 058042 5 DEVICE Scientific PLASTIC .038 ( TD01) CXI SUPPORT Cook Medical 1 V45501 244879 498830 433607 5 [id number] .035 135 CM STR catheter (B90526) DIAGNOSTIC Cardinal 1 [id number] 675069 882403 790935 5 Pigtail 5Fr Health catheter (263052N) Signature Audit [place] Stage Time Signature Unsigned Intra-Procedure 01/30/2021 Trenton Centeno RT(R) 9:25:20 AM Intra-Procedure 01/30/2021 Harry 9:26:32 AM Oly BURNETT Intra-Procedure 01/30/2021 Rosalio Hernandez MD 9:27:02 AM [place] [id number]
[~2021-01-30 06:12] MED LIST changes: +BENICAR20 MG PO; +LYRICA75 MG PO; +NORVASC5 MG PO; +PROTONIX40 MG PO; +VITAMIN D21250 MC1 PO; +XARELTO10 MG PO
[2021-01-30] MEDS ORDERED: CILOSTAZOL50 MG PO (06:57)
[2021-01-30] MEDS ORDERED: XALATAN 0.0052.5 ML EACH EYE (06:57)
[2021-01-30 07:19] LABS: BASOPHILS 1.1 % (0-2); EOSINOPHILS 3.6 % (0-7); HEMATOCRIT 40.6 % (36.0-48.0); HEMOGLOBIN 13.4 g/dL (12-16); LYMPHOCYTES 29.1 % (15-50); MCH 28.1 pg (26.0-34.0); MCHC 32.9 g/dL (31.0-37.0); MCV 85.3 fL (80.0-100.0); MEAN PLATELET VOLUME 8.2 fL (7.4-10.4); MONOCYTES 8.1 % (2-11); NEUTROPHILS 58.1 % (40-80); PLATELET COUNT 317 10x3/uL (130-400); RBC 4.76 10x6/uL (4.00-5.40); RDW 14.7 % (11.5-14.5); WBC 8.5 10x3/uL (4.8-10.8)
[2021-01-30 07:26] LABS: CALC OSMOLALITY 282 mosm/kg (275-300); CALCIUM 8.8 mg/dL (8.5-10.1); CARBON DIOXIDE 27.1 mmol/L (21.0-32.0); CHLORIDE - SERUM 106 mmol/L (98-107); CREATININE - SERUM 0.6 mg/dL (0.6-1.3); GLUCOSE 144 mg/dL (74-106); POTASSIUM - SERUM 4.6 mmol/L (3.5-5.1); SODIUM 141 mmol/L (136-145); UREA NITROGEN 11 mg/dL (7-18); eGFR NON AFRICAN AMERICAN > 90 mL/min (90-120)
--- NOTE | 2021-01-30 09:33 | NUR ---
PT ARRIVED BY STRETCHER. PLACED ON MONITORS. ASSESSMENT COMPLETED. VSS AT THIS TIME. CALL LIGHT WITHIN REACH.
--- NOTE | 2021-01-30 09:44 | NUR ---
PT RESTING COMFORTABLY. VSS. LEFT GROIN DRESSING C/D/I. NO S/S OF HEMATOMA NOTED. CALL LIGHT WITHIN REACH.
--- NOTE | 2021-01-30 10:15 | NUR ---
PT RESTING. REPOSITIONED FOR COMFORT. STILL IN SUPINE POSITION. LEFT GROIN SHEATH INTACT. DRESSING C/D. NO S/S OF HEMATOMA NOTED. LEFT PEDAL PULSE PALPABLE. RIGHT POST TIB PULSE WITH DOPPLER. NO PEDAL PULSE NOTED. RIGHT LEG IS WARM TO TOUCH AND CAP REFILL < 3 SECS. COLOR IS PINK.
--- NOTE | 2021-01-30 10:45 | NUR ---
LEFT GROIN DRESSING C/D/I. NO S/S OF HEMATOMA NOTED. CALL LIGHT WITHIN REACH. LEFT PEDAL PULSE PALPALBLE. VSS.
--- NOTE | 2021-01-30 11:17 | NUR ---
LEFT GROIN SHEATH INTACT. PT REPORTS BACK PAIN IS IMPROVED. SHE RATES IT A 3/10 AT THIS TIME.
--- NOTE | 2021-01-30 12:00 | NUR ---
LEFT GROIN SHEATH IN PLACE. NO BLEEDING/HEMATOMA NOTED. LEFT PEDAL PULSE PALPABLE. PT RESTING COMFORTABLY. NO NEEDS AT THIS TIME.
--- NOTE | 2021-01-30 13:00 | NUR ---
LEFT GROIN SHEATH IN PLACE. NO BLEEDING/HEMATOMA NOTED. LEFT PEDAL PULSE PALPABLE. VSS AT THIS TIME. PT WAS GIVEN ROOM CV07. PT'S SISTER NOTIFIED OF ROOM NUMBER AND PHONE NUMBER TO NURSE'S STATION.
--- NOTE | 2021-01-30 13:14 | NUR ---
PT NEEDED TO URINATE. PT SET UP WITH [employer] SYSTEM. ABLE TO VOID WITHOUT DIFFICULTY. CLEAR YELLOW URINE NOTED.
--- NOTE | 2021-01-30 13:16 | NUR ---
PT REPORTS SHE HAS TO VOID. SET UP WITH [employer] SYSTEM.
--- NOTE | 2021-01-30 13:29 | NUR ---
REPORT GIVEN TO LEX CRISOSTOMO IN CVICU.
--- NOTE | 2021-01-30 13:30 | NUR ---
NEW PATIENT ADMIT FROM PATTERN CARRIER. VIA HOSPITAL BED ACCOMPANIED BY HEART CATH STAFF. PATIENT IS AWAKE, ALERT AND ORIENTED X 4. VSS. PATIENT DENIES ANY NEEDS OR PAIN. SEE ADMISSION ASSESSMENT FOR DETAILS. WILL CONTINUE WITH PLAN OF CARE. SR UP X 2 BED IN LOW POSITION AND CALL LIGHT IN REACH.
--- NOTE | 2021-01-30 13:50 | NUR ---
PT TAKEN OVER TO ROOM BY STRETCHER. PLACED ON MONITORS. HANDOFF GIVEN TO LEX CRISOSTOMO. PT GIVEN CALL LIGHT. PHONE, GLASSES, AND CLOTHING AT BEDSIDE.
--- NOTE | 2021-01-30 15:00 | NUR ---
PATIENT COMPLAINS OF PRESSURE TO URINATE WITHOUT RESULTS. BLADDER SCANNER SHOWS 800 CC OF URINE. PER V/O DR VIKRAM GLEZ ORDERED.
--- NOTE | 2021-01-30 17:30 | NUR ---
GLEZ CATHETER PLACED WITHOUT DIFFICULTY. 750 OF CLEAR YELLOW URINE DRAINED TO GRAVITY BAG. PATIENT STATES SHE FEELS MUCH BETTER. WILL CONTINUE TO MONITOR. SR UP X 2 BED IN LOW POSITION AND CALL LIGHT IN REACH.
[2021-01-30 21:35] LABS: BILIRUBIN NEGATIVE (NEGATIVE); KETONE NEGATIVE mg/dL (< 1+); NITRITE NEGATIVE (NEGATIVE); PH 5.5 (5.0-8.0); UROBILINOGEN NORMAL mg/dL (< 2)
[2021-01-31] VITALS (67 sets, daily range): BP systolic 93–144; BP diastolic 33–72; Ht 160 cm; Wt 103.6 kg
[2021-01-31 00:36] LABS: INR 1.2 (0.85-1.17); PROTIME 14.1 SECONDS (11.6-15.0)
[2021-01-31 00:40] LABS: APTT 49.3 SECONDS (22.8-39.4)
[2021-01-31 05:32] LABS: HEMATOCRIT 39.6 % (36.0-48.0); HEMOGLOBIN 13.2 g/dL (12-16); MCH 28.3 pg (26.0-34.0); MCHC 33.3 g/dL (31.0-37.0); MEAN PLATELET VOLUME 8.4 fL (7.4-10.4); RBC 4.66 10x6/uL (4.00-5.40); RDW 14.3 % (11.5-14.5); WBC 10.1 10x3/uL (4.8-10.8)
--- NOTE | 2021-01-31 06:43 | NUR ---
PT OFF UNIT TO SURGERY VIA BED WITH SURGERY STAFF.
--- NOTE | 2021-01-31 08:16 | NUR ---
CVL AND ARTERIAL LINE BY ANESTHESIANILDA.
--- NOTE | 2021-01-31 11:45 | NUR ---
PT ARRIVED TO UNIT AROUND 1143. CONNECTED TO MONITOR. ON 15L O2 VIA SIMPLE MASK. AROUSES TO VOICE. RIJ CVL IN PLACE WITH PLASMOLYTE, NITROGLYCERIN, AND CLEVIPREX.SEE IV FLOW SHEET FOR RATES .JOSÉ ANTONIO TO RIGHT WRIST SECURED WITH WRIST PROTECTOR. BILATERAL GROIN INCISION WITH DRESSING C/D/I. SKIN ABRATION TO LLQ. GLEZ CATHETER IN PLACE.
[2021-01-31 13:19] LABS: HEMATOCRIT 37.4 % (36.0-48.0)
[2021-02-01] VITALS (61 sets, daily range): BP systolic 102–147; BP diastolic 37–71
[2021-02-01 05:45] LABS: HEMATOCRIT 33.1 % (36.0-48.0); MCH 28.2 pg (26.0-34.0); MCHC 33.2 g/dL (31.0-37.0); MCV 84.9 fL (80.0-100.0); MEAN PLATELET VOLUME 8.4 fL (7.4-10.4); RBC 3.9 10x6/uL (4.00-5.40); RDW 14.3 % (11.5-14.5)
[2021-02-01 05:55] LABS: ALBUMIN 2.7 g/dL (3.4-5.0); ALKALINE PHOSPHATASE 55 U/L (30-120); ALT (SGPT) 20 U/L (10-68); BILIRUBIN - TOTAL 0.46 mg/dL (0.2-1.3); CALCIUM 7.7 mg/dL (8.5-10.1); CARBON DIOXIDE 27.3 mmol/L (21.0-32.0); CHLORIDE - SERUM 105 mmol/L (98-107); CREATININE - SERUM 0.6 mg/dL (0.6-1.3); GLUCOSE 157 mg/dL (74-106); PROTEIN - SERUM 6.1 g/dL (6.4-8.2); SODIUM 141 mmol/L (136-145); eGFR NON AFRICAN AMERICAN > 90 mL/min (90-120)
[2021-02-01 05:56] LABS: CALC OSMOLALITY 281 mosm/kg (275-300); UREA NITROGEN 8 mg/dL (7-18)
[2021-02-01 06:00] LABS: WBC 16.3 10x3/uL (4.8-10.8)
--- NOTE | 2021-02-01 06:31 | NUR ---
POTASSIUM 3.0, DR. SUE MADE AWARE. ORDERED 40MEQ KCL IV OVER 2 HOURS.
--- NOTE | 2021-02-01 08:48 | OP ---
PATIENT NAME: DIVYA AN MEDICAL RECORD: [id number] :56 [facility]ATION[facility] ADMISSION DATE:01/30/21 SURGEON: SHAHEEN SUE MD DATE OF OPERATION: 01/31/2021 SURGEON: Shaheen Sue MD PROCEDURE PERFORMED: Right common femoral artery endarterectomy and right profunda femoral artery patch angioplasty. 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 ANESTHESIA: General endotracheal anesthesia. ESTIMATED BLOOD LOSS: 100 cc. No cell saver retransfusion. COMPLICATIONS: None. SPECIMENS: Plaque. CONDITION: Stable. DISPOSITION: CV-ICU. OPERATIVE FINDINGS: 1. Unable to withdrawal or flush the left femoral and venous sheath. The femoral sheath was changed over a guidewire using fluoroscopic control, but again blood could not be returned from the sheath. At the conclusion of the case and after reversal of heparin, an Angio-Seal was deployed for closure of the femoral artery sheath and direct pressure was held for venous and arterial sites. 2. Large, protuberant abdomen required retraction. The distal external iliac and common femoral were deep within the fat. 3. Plaque extending from the upper one-third of the common femoral artery down into the superficial femoral and also along the posterior wall of the profunda femoral. The plaque feathered well distally. The plaque was tacked in the profunda femoral. Good backbleeding noted from the superficial, profunda femoral, and good Doppler signal after anastomosis. 4. Prior to the endarterectomy pressure was checked utilizing 22-gauge needle above the plaque in the common femoral, so just in the distal external iliac the pressure was equal to aortic and in the proximal profunda femoral. It was 65, which was half of aortic pressure. This was improved to 95 after endarterectomy and patch angioplasty. No significant flow was detected in the superficial femoral artery consistent with the last angiogram from the catheterization lab. INDICATION: Subtotal common femoral occlusion and acute occlusion superficial femoral artery. PROCEDURE IN DETAIL: The patient was brought to the operating suite. General OPERATIVE REPORT [id number] DIVYA AN anesthesia was obtained, femoral sheath exchange under fluoroscopic control. An oblique incision made in the right groin, taken down to the subcutaneous tissue. Large venous branches were divided between ligatures and suture ligatures. Arterial branches were preserved. The external iliac was exposed. Large branches encircled with vessel loops. The profunda femoral and superficial femoral dissected out including the profunda femoral well deep behind the profunda femoral vein. Heparin was given. After the heparin circulated, the inflow was controlled with a vascular clamp. Backbleeding and profunda femoral also with a vascular clamp and the superficial femoral and other small branches controlled with vessel loops. Arteriotomy was made and taken out the region of dense calcification and an exophytic type plaque on the posterior wall was identified and debrided. The endarterectomy was then performed, thorough irrigation was undertaken. All bits of loose debris were removed. A CorMatrix patch was fashioned in the appropriate size and sutured along the edge of the arteriotomy. Prior to completing the anastomosis, backbleeding was allowed from all 3 major vessels and the anastomosis completed. It should be noted that prior to this, the posterior wall of the profunda was tacked where the plaque ended. Flow was restored first to the side branches then to profunda femoral and superficial femoral. Good Doppler signal in profunda femoral was noted. Protamine was given. Hemostasis was ensured. Wound was irrigated with antibiotic solution and closed in 3 layers with skin clips. On the left side, Angio-Seal was deployed in the artery. The femoral sheath and the venous was also removed and pressure was held. No apparent complications. The patient to ICU stable. TRANSINT:[id number] Voice Confirmation ID: [id number] DOCUMENT ID: [id number] SHAHEEN SUE MD at 0848 CC: DANIELA CONTE DO and SOL FAIRBANKS M.D. [id number] DICTATION DATE: 01/31/21 1746 PHYSICIAN CHIEF OF PATHOLOGY: 01/31/212044 ADM IN [facility] [address] [place] [id number]
--- NOTE | 2021-02-01 15:26 | NUR ---
PT TEMP RISING- CURRENTLY 101.3. md Todd VERBAL ORDER FOR TYLENOL 650MG- SEE OCT. VSS WILL CONTINUE TO MONITOR.
[2021-02-02] VITALS (15 sets, daily range): BP systolic 76–124; BP diastolic 23–66
[2021-02-02 05:40] LABS: HEMATOCRIT 31.8 % (36.0-48.0); HEMOGLOBIN 10.5 g/dL (12-16); MCH 28.7 pg (26.0-34.0); MCHC 33.1 g/dL (31.0-37.0); MCV 86.8 fL (80.0-100.0); MEAN PLATELET VOLUME 8.5 fL (7.4-10.4); RBC 3.66 10x6/uL (4.00-5.40); RDW 14.5 % (11.5-14.5); WBC 13.2 10x3/uL (4.8-10.8)
[2021-02-02 05:52] LABS: ALBUMIN 2.4 g/dL (3.4-5.0); ALKALINE PHOSPHATASE 57 U/L (30-120); CALC OSMOLALITY 286 mosm/kg (275-300); CALCIUM 7.5 mg/dL (8.5-10.1); CARBON DIOXIDE 30.2 mmol/L (21.0-32.0); CHLORIDE - SERUM 109 mmol/L (98-107); CREATININE - SERUM 0.6 mg/dL (0.6-1.3); GLUCOSE 126 mg/dL (74-106); PROTEIN - SERUM 6.1 g/dL (6.4-8.2); SODIUM 144 mmol/L (136-145); UREA NITROGEN 6 mg/dL (7-18); eGFR NON AFRICAN AMERICAN > 90 mL/min (90-120)
[2021-02-02 05:59] LABS: ALT (SGPT) 14 U/L (10-68); POTASSIUM - SERUM 3.6 mmol/L (3.5-5.1)
--- NOTE | 2021-02-02 12:02 | NUR ---
Nutrition Follow-up: POD 2 femoral endarterectomy, profundoplasty. Appetite is ok. Reports eating fair amt of breakfast this AM. Denies N/V/C/D, chewing/swallowing difficulty. Diet: Diabetic, Vegetarian WT: 228# (02/02) Last BM: 02/02 Labs noted: Glu 126, Ca 7.5, Alb 2.4 Meds noted: Senokot, Colace, Humulin, electrolyte protocol -Encourage PO intake and honor food preferences within diet restrictions. -Monitor wt. -RD will follow up within 3-4 days.
[2021-02-02] MEDS ORDERED: ULTRAM50 MG PO (14:56)
--- NOTE | 2021-02-02 16:35 | NUR ---
1030: GLEZ DC'D. 1400: O2 DC'D. AMBULATED WITH PT IN HALLWAY WITHOUT O2 WITHOUT ANY SOB. 1600: R IJ DC'D. SITE DRESSED WITH 2X2 AND TEGADERM.
--- NOTE | 2021-02-02 16:54 | NUR ---
DISCHARGED HOME WITH SISTER. ESCORTED TO VEHICLE VIA .
== END 2021-02-02 16:54 | disposition home or self-care (01) | DRG 254 ==
LOC: D.CATH 06:12 → D.CVICU 09:52 → D.CATH 13:31 → D.CVICU 13:31
PROVIDERS: Family Medicine; Thoracic Surgery (Cardiothoracic Vascular Surgery); ADMIT Internal Medicine Cardiovascular Disease; ATTEND Internal Medicine Cardiovascular Disease
PROC: B41F1ZZ Fluoroscopy of Right Lower Extremity Arteries using Low Osmolar Contrast (ICD-10-PCS; 2021-01-30)
PROC: 04CK0ZZ Extirpation of Matter from Right Femoral Artery, Open Approach (ICD-10-PCS; principal; 2021-01-31 07:30)
DX: E11.51 Type 2 diabetes mellitus with diabetic peripheral angiopathy without gangrene (principal); I70.211 Atherosclerosis of native arteries of extremities with intermittent claudication, right leg; Z79.84 Long term (current) use of oral hypoglycemic drugs; E11.40 Type 2 diabetes mellitus with diabetic neuropathy, unspecified; K21.9 Gastro-esophageal reflux disease without esophagitis; I10 Essential (primary) hypertension; E78.5 Hyperlipidemia, unspecified; Z87.891 Personal history of nicotine dependence